=== PATIENT | female | born 1935 | race Caucasian/White ===

== ENCOUNTER 2017-05-30 21:00 | Inpatient (IN) | payer MEDICARE ==
[2017-05-30 21:00] VITALS: RESP 19; O2SAT 99
[2017-05-30 21:05] VITALS: O2SAT 100
--- NOTE | 2017-05-30 21:08 | PD ---
HPI Chief Complaint: head injury Time Seen by Provider: 21:03 Travel History International Travel<30 days: No Contact w/Intl Traveler<30days: No Traveled to known affect area: No History of Present Illness HPI 81-year-old female presents to the emergency department by EMS transport from home where she was witnessed to have a non-syncopal slip and fall backwards with head injury. According the patient just prior to arrival to the emergency department she was at her home and stepped backwards off of a small uneven surface on the floor and was unable to catch her fall with her extremities and landed backwards hitting the back of her head. Patient sustained a large laceration to the back of the head with estimated blood loss of 2 saturated trauma pads per EMS. Patient complains of posterior head pain and neck pain. Patient denies any upper extremity or lower extremity numbness tingling or weakness other she does have chronic peripheral diabetic neuropathy that affects both of her feet with tingling sensation that is at her baseline. Patient states she did not have loss of consciousness and remembers all elements of the event. Patient did have episode of vomiting en route to the hospital and received a one-time dose of Zofran. Patient's last tetanus immunization was within the last year. Patient takes Plavix and aspirin daily for history of cardiac disease with previous coronary bypass and bridge 12 years ago. Patient is seen annually by her database administration project manager Dr. Cornelius and has annual stress tests and was seen as recently as 3 months ago by her database administration project manager and her workup was fine at that time. Patient denies any preceding or post fall confusion visual disturbance change in speech chest pain palpitations sweats shortness of breath or referred neck jaw back shoulder or arm pain. Patient denies any back pain flank pain pelvis pain chest pain rib pain abdominal pain painful respiration pelvis pain or extremity injury. Patient rates her current pain 5/10 in intensity. Patient admits to alcohol consumption this evening. [facility] Past Medical History Narrative Medical CAD, CABG, diabetes, hypertension alcohol use no tobacco use nursing notes reviewed Social History Tobacco Use: No Allergies-Medications (Allergen,Severity, Reaction): Coded Allergies: Penicillins (Verified Allergy, Unknown, 05/30/17) Review of Systems Except as stated in HPI: all other systems reviewed are Neg General / Constitutional: No: Fever, Chills Eyes: No: Diploplia, Blurred Vision HENT: Positive: Headaches, Neck Pain, No: Vertigo, Lightheadedness, Neck Stiffness Cardiovascular: No: Chest Pain or Discomfort, Palpitations, Diaphoresis, Syncope Respiratory: No: Shortness of Breath Gastrointestinal: Positive: Nausea, Vomiting, No: Abdominal Pain Genitourinary: No: Pelvic Pain, Flank Pain Musculoskeletal: No: Myalgias, Arthralgias Skin: No Rash Neurologic: Positive: Headache, No: Weakness, Dizziness, Syncope, Focal Abnormalities, Coordination Problem, Change in Mentation, Slurred Speech, Paresthesia (diabetic peripheral neuropathy), Seizures, Sensory Disturbance Psychiatric: No: Anxiety Hematologic/Lymphatic: Positive: Easy Bruising (Plavix aspirin use) Physical Exam Narrative GENERAL: Well-developed well-nourished female in no acute distress no respiratory distress; GCS 15; bandage to scalp and had with cervical collar in place transported without backboard. SKIN: Warm and dry. HEAD: Atraumatic. Normocephalic. Scalp hematoma, posterior EYES: Pupils equal and round. Extraocular muscles intact. No scleral icterus. No injection or drainage. ENT: No nasal bleeding or discharge. Mucous membranes pink and moist. NECK: Trachea midline. No JVD. Minimal proximal tenderness to midline palpation of the cervical spine without bony step-off. CARDIOVASCULAR: Regular rate and rhythm. Chest wall: Nontender to palpation no crepitus. RESPIRATORY: No accessory muscle use. Clear to auscultation. Breath sounds equal bilaterally. GASTROINTESTINAL: Abdomen soft, non-tender, nondistended. Hepatic and splenic margins not palpable. MUSCULOSKELETAL: Extremities without clubbing, cyanosis, or edema. No obvious deformities. Radial and dorsalis pedis pulses 2+ to palpation bilaterally with brisk capillary refill per digit NEUROLOGICAL: Awake and alert. GCS 15. No obvious cranial nerve deficits. Motor grossly within normal limits. Five out of 5 muscle strength in the arms and legs. Sensory exam grossly intact to light touch. Normal speech. PSYCHIATRIC: Appropriate mood and affect; insight and judgment normal. Data Data Last Documented VS Vital Signs Date Time Temp Pulse Resp B/P (MAP) Pulse Ox O2 Delivery O2 Flow Rate FiO2 05/30/17 21:05 100 2.00 05/30/17 21:00 Nasal Cannula 05/30/17 21:00 19 Orders Orders I-Stat Profile (05/30/17 21:03) I-Stat Creatinine (05/30/17 21:03) Complete Blood Count With Diff (05/30/17 21:03) Prothrombin Time / Inr (Pt) (05/30/17 21:03) Act Partial Throm Time (Ptt) (05/30/17 21:03) Type And Screen (05/30/17 21:03) Chest, Single Ap (05/30/17 21:03) Ct Brain W/O Iv Contrast(Rout) (05/30/17 21:03) Ct Cerv Spine W/O Contrast (05/30/17 21:03) Electrocardiogram (05/30/17 21:03) Blood Glucose (05/30/17 21:03) Iv Access Insert/Monitor (05/30/17 21:03) Ecg Monitoring (05/30/17 21:03) Oximetry (05/30/17 21:03) Oxygen Administration (05/30/17 21:03) Ondansetron Inj (Zofran Inj) (05/30/17 21:15) Potassium, Serum (K) (05/30/17 21:26) Calcium Gluconate Inj (Calcium Gluconate (05/30/17 21:30) Alcohol (Ethanol) (05/30/17 21:20) Troponin I (05/30/17 21:20) Morphine Inj (Morphine Inj) (05/30/17 21:45) Nitroglycerin 2% Oint (Nitroglycerin 2% (05/30/17 22:15) Electrocardiogram (05/30/17 ) Lidocaine Pf 1% Inj (Xylocaine-Mpf 1% In (05/30/17 22:30) Aspirin Chew (Aspirin Chew) (05/31/17 00:45) Cefazolin 2 Gm Premix (Ancef 2 Gm Premix (05/31/17 00:45) Place In Observation (05/31/17 ) Vital Signs (Adult) Q4H (05/31/17 00:52) Activity Bed Rest With Brp (05/31/17 ) Process Designer / Telemetry SARITHA.Q8H (05/31/17 00:52) Sodium Chloride 0.9% Flush (Ns Flush) (05/31/17 09:00) Sodium Chloride 0.9% Flush (Ns Flush) (05/31/17 01:00) Creatine Kinase (Cpk) (05/31/17 09:00) Troponin I (05/31/17 09:00) Electrocardiogram (05/31/17 03:00) Electrocardiogram (05/31/17 09:00) Galileo Bilateral/Knee High SARITHA.QSHIFT (05/31/17 00:52) Labs Laboratory Tests Test 05/30/17 21:05 05/30/17 21:20 White Blood Count 8.0 TH/MM3 Red Blood Count 3.91 MIL/MM3 Hemoglobin 13.8 GM/DL Bedside Hemoglobin 13.9 G/DL Hematocrit 38.4 % Bedside Hematocrit 41.0 % Mean Corpuscular Volume 98.2 FL Mean Corpuscular Hemoglobin 35.2 PG Mean Corpuscular Hemoglobin Concent 35.8 % Red Cell Distribution Width 13.4 % Platelet Count 291 TH/MM3 Mean Platelet Volume 8.0 FL Neutrophils (%) (Auto) 66.6 % Lymphocytes (%) (Auto) 25.6 % Monocytes (%) (Auto) 5.2 % Eosinophils (%) (Auto) 1.9 % Basophils (%) (Auto) 0.7 % Neutrophils # (Auto) 5.3 TH/MM3 Lymphocytes # (Auto) 2.0 TH/MM3 Monocytes # (Auto) 0.4 TH/MM3 Eosinophils # (Auto) 0.2 TH/MM3 Basophils # (Auto) 0.1 TH/MM3 CBC Comment DIFF FINAL Differential Comment Prothrombin Time 11.3 SEC Prothromb Time International Ratio 1.0 RATIO Activated Partial Thromboplast Time 24.3 SEC Bedside Sodium 131 MMOL/L Bedside Potassium 6.5 MMOL/L Bedside Chloride 98 MMOL/L Bedside Blood Urea Nitrogen 16 MG/DL Bedside Creatinine 0.6 MG/DL Bedside Glucose 186 MG/DL Potassium Level 4.0 MEQ/L Troponin I 0.17 NG/ML Ethyl Alcohol Level LESS THAN 3 MG/DL [facility] Medical Decision Making Medical Screen Exam Complete: Yes Emergency Medical Condition: Yes Medical Record Reviewed: Yes Interpretation(s) EKG: Sinus rhythm first degree AV block with interventricular conduction delay with age-indeterminate QS inferiorly and anterolaterally Differential Diagnosis Closed head injury, concussion, skull fracture, ICH, scalp laceration, arrhythmia, cervical spine sprain strain contusion Narrative Course Patient placed on surveillance monitor with continuous pulse oximetry EKG performed which shows QRS inferiorly and Q waves anterolaterally age-indeterminate RSR prime right bundle branch block noted V2 indeterminate ST elevation patient has no chest pain or shortness of breath complains of head pain and has had nausea secondary to head injury. I-STAT resulted as potassium of 6.5 concerning for conduction disturbance stat serum potassium ordered with plan to administer calcium gluconate for hyperkalemia persistent. Repeat serum potassium 4.0 Patient returns from CAT scan complains of headache and neck pain associated with cervical collar application imaging study results pending patient given one -time dose of morphine 2 mg for headache pain again denies any nausea at this time denies any chest pain or shortness of breath. At 9:[address] brain noncontrast and CT cervical spine non-contrast studies have been resulted by radiologist CT brain noncontrast reveals no acute inter cranial process no skull fracture scalp hematoma is noted; CT cervical spine reveals no acute bony abnormality or fracture, mild degenerative disc disease is noted. This information is shared with the patient and cervical collar has been removed by me after reassessment of spine on exam. Troponin I is elevated at 0.17; patient denies any chest pain; in view of cardiac history and prior age-indeterminate QS changes inferiorly and anterolaterally nitroglycerin paste 1 inch was applied to the chest wall. Call was placed to patient's database administration project manager Dr. Locke and patient's case discussed with Dr. Vera including review of her EKGs and reports that EKG changes look consistent with old OK and no acute event does not think the EKG changes are consistent with STEMI. Patient will be admitted to medicine service to [facility] for closed head injury status post fall, scalp laceration with hematoma, elevated troponin I with CAD on anticoagulation, and cervical strain. Procedures Procedure Narrative LACERATION LOCATION: Posterior right scalp LENGTH: 2.5 stellate NUMBER OF STITCHES/KD: 7 REPAIR: The area of the laceration was prepped with Betadine and sterilely draped. The laceration was infiltrated with 1% lidocaine plain. The wound was copiously irrigated and explored with evacuation of large clot without evidence of foreign body, tendon injury or neurovascular injury. The wound was closed using 5-0 nylon. This was a single layer repair. A sterile dressing was applied. The patient was advised to keep the dressing clean and dry. Patient tolerated the procedure well. Tetanus status current. Physician Communication Physician Communication Call placed to Dr. Grace--discussed with Dr Vera --reviewed EKG's; discussed with Dr Houston --admit Diagnosis Primary Impression: Closed head injury Qualified Codes: S09.90XA - Unspecified injury of head, initial encounter Additional Impressions: Elevated troponin I level Traumatic hematoma of scalp Qualified Codes: S00.03XA - Contusion of scalp, initial encounter CAD (coronary artery disease) Cervical strain Qualified Codes: S16.1XXA - Strain of muscle, fascia and tendon at neck level , initial encounter Admitting Information Admitting Physician Requests: Admit Evonne Knott MD May 30, 2017 21:08
[2017-05-30] MEDS ORDERED: ONDANSETRON HCL 4 MG/2 ML VIAL ONE (21:15)
[2017-05-30 21:25] LABS: I-STAT POTASSIUM 6.5 MMOL/L (3.5-4.9)
[2017-05-30 21:26] LABS: AUTOMATED NEUTROPHIL # 5.3 TH/MM3 (1.8-7.7); BASOPHIL # 0.1 TH/MM3 (0-0.2); BASOPHIL % 0.7 % (0.0-2.0); EOSINOPHIL # 0.2 TH/MM3 (0-0.4); EOSINOPHIL % 1.9 % (0.0-4.0); HEMATOCRIT 38.4 % (35.0-46.0); HEMO FLAGS DIFF FINAL; LYMPH % 25.6 % (9.0-44.0); MEAN CELL VOLUME 98.2 FL (80.0-100.0); MEAN CORPUSCULAR HEMOGLOBIN 35.2 PG (27.0-34.0); MEAN CORPUSCULAR HGB CONC 35.8 % (32.0-36.0); MONO % 5.2 % (0.0-8.0); NEUT % 66.6 % (16.0-70.0); PLATELET COUNT 291 TH/MM3 (150-450); RED BLOOD COUNT 3.91 MIL/MM3 (4.00-5.30); RED CELL DISTRIBUTION WIDTH 13.4 % (11.6-17.2)
[2017-05-30] MEDS ORDERED: CALCIUM GLUCONATE INJ 1 GM in DEXTROSE 5% IN WATER 100ML INJ 100 ML IV ONE ×2 (21:30)
--- NOTE | 2017-05-30 21:32 | RADRPT ---
EXAM DATE/TIME: 05/30/2017 21:13 [facility] COMPARISON: No previous studies available for comparison. INDICATIONS : Trauma/ Fall MEDICAL HISTORY : Cardiovascular disease. SURGICAL HISTORY : CABG. ENCOUNTER: Initial ACUITY: 1 day PAIN SCORE: 0/10 LOCATION: Bilateral chest FINDINGS: A single view of the chest demonstrates the lungs to be symmetrically aerated without evidence of mas s, infiltrate or effusion. The cardiomediastinal contours are unremarkable. Previous CABG. Osseous s tructures are intact. CONCLUSION: 1. No active disease. Previous CABG. Riky Bird MD on May 30, 2017 at 21:30 Board Certified Radiologist. This report was verified electronically.
[2017-05-30 21:45] LABS: APTT (PATIENT) 24.3 SEC (24.3-30.1); PROTHROMBIN TIME - PATIENT 11.3 SEC (9.8-11.6)
[2017-05-30] MEDS ORDERED: MORPHINE SULFATE 2 MG/ML INJ IV PUSH ONE (21:45)
--- NOTE | 2017-05-30 21:49 | RADRPT ---
EXAM DATE/TIME: 05/30/2017 21:23 [facility] COMPARISON: No previous studies available for comparison. INDICATIONS : Trauma alert; fall. RADIATION DOSE: 56.35 CTDIvol (mGy) MEDICAL HISTORY : Hypertension. Diabetes mellitus type 2. SURGICAL HISTORY : None. ENCOUNTER: Initial ACUITY: 1 day PAIN SCALE: 5/10 LOCATION: cranial TECHNIQUE: Multiple contiguous axial images were obtained of the head. Using automated exposure control and adj ustment of the mA and/or kV according to patient size, radiation dose was kept as low as reasonably a chievable to obtain optimal diagnostic quality images. DICOM format image data is available electro nically for review and comparison. FINDINGS: CEREBRUM: The ventricles are normal for age. No evidence of midline shift, mass lesion, hemorrhage or acute in farction. No extra-axial fluid collections are seen. POSTERIOR FOSSA: The cerebellum and brainstem are intact. The 4th ventricle is midline. The cerebellopontine angle i s unremarkable. EXTRACRANIAL: The visualized portion of the orbits is intact. Right parietal scalp hematoma. SKULL: The calvaria is intact. No evidence of skull fracture. CONCLUSION: 1. No acute intracranial abnormalities. Right parietal scalp hematoma. Riky Bird MD on May 30, 2017 at 21:45 Board Certified Radiologist. This report was verified electronically.
--- NOTE | 2017-05-30 21:50 | RADRPT ---
EXAM DATE/TIME: 05/30/2017 21:25 [facility] COMPARISON: No previous studies available for comparison. INDICATIONS : Trauma alert; fall. RADIATION DOSE: 36.37 CTDIvol (mGy) MEDICAL HISTORY : Hypertension. Diabetes mellitus type 2. SURGICAL HISTORY : None. ENCOUNTER: Initial ACUITY: 1 day PAIN SCALE: 5/10 LOCATION: Bilateral neck TECHNIQUE: Volumetric scanning of the cervical spine was performed. Multiplanar reconstructions in the sagittal, coronal and oblique axial planes were performed. Using automated exposure control and adjustment o f the mA and/or kV according to patient size, radiation dose was kept as low as reasonably achievable to obtain optimal diagnostic quality images. DICOM format image data is available electronically f or review and comparison. FINDINGS: VERTEBRAE: Normal vertebral body height. ALIGNMENT: No evidence of subluxation. C2-C3: The bony spinal canal is normal in size. No evidence of disc bulge or herniation. The neural forami na are bilaterally patent. C3-C4: The bony spinal canal is normal in size. No evidence of disc bulge or herniation. The neural forami na are bilaterally patent. C4-C5: The bony spinal canal is normal in size. No evidence of disc bulge or herniation. The neural forami na are bilaterally patent. C5-C6: The bony spinal canal is normal in size. No evidence of disc bulge or herniation. The neural forami na are bilaterally patent. C6-C7: The bony spinal canal is normal in size. No evidence of disc bulge or herniation. The neural forami na are bilaterally patent. C7-T1: The bony spinal canal is normal in size. No evidence of disc bulge or herniation. The neural forami na are bilaterally patent. CONCLUSION: 1. Mild degenerative disc disease and facet arthropathy. No acute bony abnormality. Riky Bird MD on May 30, 2017 at 21:47 Board Certified Radiologist. This report was verified electronically.
[2017-05-30 21:51] LABS: ALCOHOL LESS THAN 3 MG/DL (0-5)
[2017-05-30] MEDS ORDERED: NITROGLYCERIN 2% OINT 1 GM PACKET TOPICAL ONE (22:15)
[2017-05-30] MEDS ORDERED: LIDOCAINE HCL 1% PF 30 ML VIAL INFIL ONE (22:30)
[2017-05-31] VITALS (22 sets, daily range): BP systolic 123–154; BP diastolic 68–90; PULSE 65–90; RESP 15–20; TEMP 98.1–98.8; O2SAT 96–99
[2017-05-31] MEDS ORDERED: ceFAZolin 2 GM PREMIX 50 ML IV ONE (00:45)
[2017-05-31] MEDS ORDERED: ASPIRIN 81 MG CHEW TAB CHEW ONE (00:45)
[2017-05-31] MEDS ORDERED: SODIUM CHLORIDE 0.9% FLUSH 10 ML FLUSH IV FLUSH PRN (01:00)
[2017-05-31] MEDS ORDERED: METOCLOPRAMIDE HCL 10 MG/2 ML VIAL IV PUSH ONE (02:15)
[2017-05-31] MEDS ORDERED: MORPHINE SULFATE 2 MG/ML INJ IV PUSH ONE (02:15)
[2017-05-31] MEDS ORDERED: GLUCAGON 1 MG/ML VIAL OTHER PRN (02:30)
[2017-05-31] MEDS ORDERED: DEXTROSE 50% IN WATER 50 ML VIAL(D50) IV PUSH PRN (02:30)
--- NOTE | 2017-05-31 02:33 | HHI.HP ---
[facility] Service [facility] Primary Care Physician Unknown Admission Diagnosis closed head injury; elevated troponin I w/ CAD; cervical strain Diagnoses: Travel History International Travel<30 Days: No Contact w/Intl Traveler <30 Da: No Traveled to Known Affected Are: No History of Present Illness 81-year-old female with a past medical history significant for coronary artery disease status post CABG, duodenal ulcer, diabetes mellitus, anxiety and neuropathy presents to the emergency department status post a fall. The patient was at her home when she stepped backwards off an uneven surface and fell backwards hitting the back of her head. The patient sustained a large laceration to the back of her head. She denies loss of consciousness. Since her fall, she has had several episodes of nausea/vomiting. She is anticoagulated on aspirin and Plavix. CT of the head was significant for right parietal scalp hematoma without intracranial abnormalities. CT of the cervical spine is within normal limits. The patient denies any chest pain or shortness of breath. She continues to have nausea and states she "just doesn't feel well. " Laboratory values significant for troponin of 0.17. EKG showed sinus rhythm and right bundle branch block without ST segment elevations or depressions. Review of Systems Denies fever or chills Denies blurry vision, otorrhea, rhinorrhea Denies sore throat and cough No chest pain, palpitations, shortness of breath Positive abdominal pain Positive nausea/vomiting. Chronic diarrhea. Denies muscle pain/weakness No rashes Past Family Social History Past Medical History Neuropathy Anxiety Type 2 diabetes mellitus Coronary artery disease status post CABG Duodenal ulcer Past Surgical History CABG 3 Hysterectomy Allergies: Coded Allergies: Penicillins (Verified Allergy, Unknown, 05/30/17) Family History Mother with diabetes mellitus Social History Smokes a half pack to a pack per day for 40 years. Denies alcohol, illicit drugs Physical Exam Vital Signs Vital Signs Date Time Temp Pulse Resp B/P (MAP) Pulse Ox O2 Delivery O2 Flow Rate FiO2 05/31/17 01:00 65 15 154/68 (96) 96 Room Air 05/30/17 21:05 100 2.00 05/30/17 21:00 99 Nasal Cannula 2.00 05/30/17 21:00 19 99 Nasal Cannula 2.00 Physical Exam GENERAL: Elderly female lying in bed SKIN: No rashes HEAD: Normocephalic. Dressing wrapped around the patient's head covering parietal laceration. No shadowing. EYES: Pupils equal round and reactive. Extraocular motions intact. No scleral icterus. No injection or drainage. ENT: Nose without bleeding, purulent drainage or septal hematoma. Throat without erythema, tonsillar hypertrophy or exudate. Uvula midline. Airway patent. NECK: Trachea midline. No JVD or lymphadenopathy. Supple, nontender, no meningeal signs. CARDIOVASCULAR: Regular rate and rhythm without murmurs, gallops, or rubs. RESPIRATORY: Clear to auscultation. Breath sounds equal bilaterally. No wheezes , rales, or rhonchi. GASTROINTESTINAL: Abdomen soft, diffusely ttp, nondistended. No hepato- splenomegaly, or palpable masses. No guarding. MUSCULOSKELETAL: Extremities without clubbing, cyanosis, or edema. No joint tenderness, effusion, or edema noted. No calf tenderness. Negative Homans sign bilaterally. NEUROLOGICAL: Awake and alert. Cranial nerves II through XII intact. Motor and sensory grossly within normal limits. Normal speech. Laboratory Laboratory Tests Test 05/30/17 21:05 05/30/17 21:20 White Blood Count 8.0 Red Blood Count 3.91 Hemoglobin 13.8 Bedside Hemoglobin 13.9 Hematocrit 38.4 Bedside Hematocrit 41.0 Mean Corpuscular Volume 98.2 Mean Corpuscular Hemoglobin 35.2 Mean Corpuscular Hemoglobin Concent 35.8 Red Cell Distribution Width 13.4 Platelet Count 291 Mean Platelet Volume 8.0 Neutrophils (%) (Auto) 66.6 Lymphocytes (%) (Auto) 25.6 Monocytes (%) (Auto) 5.2 Eosinophils (%) (Auto) 1.9 Basophils (%) (Auto) 0.7 Neutrophils # (Auto) 5.3 Lymphocytes # (Auto) 2.0 Monocytes # (Auto) 0.4 Eosinophils # (Auto) 0.2 Basophils # (Auto) 0.1 CBC Comment DIFF FINAL Differential Comment Prothrombin Time 11.3 Prothromb Time International Ratio 1.0 Activated Partial Thromboplast Time 24.3 Bedside Sodium 131 Bedside Potassium 6.5 Bedside Chloride 98 Bedside Blood Urea Nitrogen 16 Bedside Creatinine 0.6 Bedside Glucose 186 Potassium Level 4.0 Troponin I 0.17 Ethyl Alcohol Level LESS THAN 3 Result Diagram: 05/30/17210405/30/172119 Caprini VTE Risk Assessment Caprini VTE Risk Assessment: Mod/High Risk (score >= 2) Caprini Risk Assessment Model Point Value = 1 Point Value = 2 Point Value = 3 Point Value = 5 Age 41-60 Minor surgery BMI > 25 kg/m2 Swollen legs Varicose veins or History of unexplained or recurrent spontaneous Oral contraceptives or hormone replacement Sepsis (< 1 month) Serious lung disease, including pneumonia (< 1 month) Abnormal pulmonary function Acute myocardial infarction Congestive heart failure (< 1 month) History of inflammatory bowel disease Medical patient at bed rest Age 61-74 Arthroscopic surgery Major open surgery (> 45 min) Laparoscopic surgery (> 45 min) Malignancy Confined to bed (> 72 hours) Immobilizing plaster cast Central venous access Age >= 75 History of VTE Family history of VTE Factor V Leiden Prothrombin [id number] Lupus anticoagulant Anticardiolipin antibodies Elevated serum homocysteine Heparin-induced thrombocytopenia Other congenital or acquired thrombophilia Stroke (< 1 month) Elective arthroplasty Hip, pelvis, or leg fracture Acute spinal cord injury (< 1 month) Prophylaxis Regimen Total Risk Factor Score Risk Level Prophylaxis Regimen 0-1 Low Early ambulation 2 Moderate Order ONE of the following: *Sequential Compression Device (SCD) *Heparin 5000 units SQ BID 3-4 Higher Order ONE of the following medications: *Heparin 5000 units SQ TID *Enoxaparin/Lovenox 40 mg SQ daily (WT < 150 kg, CrCl > 30 mL/min) *Enoxaparin/Lovenox 30 mg SQ daily (WT < 150 kg, CrCl > 10-29 mL/min) *Enoxaparin/Lovenox 30 mg SQ BID (WT < 150 kg, CrCl > 30 mL/min) AND/OR *Sequential Compression Device (SCD) 5 or more Highest Order ONE of the following medications: *Heparin 5000 units SQ TID (Preferred with Epidurals) *Enoxaparin/Lovenox 40 mg SQ daily (WT < 150 kg, CrCl > 30 mL/min) *Enoxaparin/Lovenox 30 mg SQ daily (WT < 150 kg, CrCl > 10-29 mL/min) *Enoxaparin/Lovenox 30 mg SQ BID (WT < 150 kg, CrCl > 30 mL/min) AND *Sequential Compression Device (SCD) Assessment and Plan Assessment and Plan 81-year-old female who sustained a head injury status post fall found to have elevated troponin. 1. Elevated troponin EKG with right bundle branch block and no ST elevation or depression, reviewed by me Troponin 0.17 ACS rule out pending; serial troponins/EKGs Cardiology consulted, appreciate recommendations Spoke with Dr. Knott at length who discussed the case with Dr. Vera, he recommends monitoring without anticoagulation at this time 2. Closed head injury CT head negative for intracranial cranial bleed Patient continues to have nausea/vomiting Monitor closely with neuro checks Low threshold to repeat head CT 3. DM SSI 4. CAD/anxiety/neuropathy Continue home medications once entered FEN NPO NS at 50 cc/hr Electrolytes: Monitor and replete prn Holding pharmacologic anticoagulation secondary to head trauma Physician Certification 2 Midnight Certification Type: Admission for Inpatient Services Order for Inpatient Services The services are ordered in accordance with Medicare regulations or non- Medicare payer requirements, as applicable. In the case of services not specified as inpatient-only, they are appropriately provided as inpatient services in accordance with the 2-midnight benchmark. Estimated LOS (days): 2 2 days is the estimated time the patient will need to remain in the hospital, assuming treatment plan goals are met and no additional complications. Post-Hospital Plan: Not yet determined Elena Houston MD May 31, 2017 02:33
[2017-05-31 02:55] LABS: AUTOMATED NEUTROPHIL # 9.7 TH/MM3 (1.8-7.7); BASOPHIL % 0.1 % (0.0-2.0); HEMATOCRIT 40.1 % (35.0-46.0); HEMO FLAGS DIFF FINAL; LYMPH % 7.7 % (9.0-44.0); LYMPHOCYTE # 0.9 TH/MM3 (1.0-4.8); MEAN CELL VOLUME 99.2 FL (80.0-100.0); MEAN CORPUSCULAR HEMOGLOBIN 33.5 PG (27.0-34.0); MEAN CORPUSCULAR HGB CONC 33.8 % (32.0-36.0); MONO % 4.2 % (0.0-8.0); PLATELET COUNT 231 TH/MM3 (150-450); RED BLOOD COUNT 4.04 MIL/MM3 (4.00-5.30); RED CELL DISTRIBUTION WIDTH 12.9 % (11.6-17.2)
[2017-05-31] MEDS: SODIUM CHLOR 0.9% 1000 ML INJ 1,000 ML IV SCH ×2 (03:02→22:30)
[2017-05-31 03:12] LABS: ALT (GPT) 24 U/L (10-53); ANION GAP 12 MEQ/L (5-15); AST (GOT) 32 U/L (15-37); BICARBONATE 24.4 MEQ/L (21.0-32.0); BLOOD UREA NITROGEN 12 MG/DL (7-18); CHLORIDE 96 MEQ/L (98-107); GLOMERULAR FILTRATION RATE 89 ML/MIN (>89); POTASSIUM 3.2 MEQ/L (3.5-5.1); SODIUM (NA) 132 MEQ/L (136-145)
[2017-05-31 03:14] LABS: ALKALINE PHOSPHATASE 62 U/L (45-117); TOTAL BILIRUBIN ADULT 0.7 MG/DL (0.2-1.0)
[2017-05-31] MEDS: ACETAMINOPHEN 325 MG TAB PO PRN ×2 (03:54→20:44)
[2017-05-31] MEDS ORDERED: ROSU1TAB4 PO (07:38)
[2017-05-31] MEDS ORDERED: RAMI5CAP PO (07:38)
[2017-05-31] MEDS ORDERED: GABA300C5 PO (07:38)
[2017-05-31] MEDS ORDERED: METF-758 PO (07:38)
[2017-05-31] MEDS ORDERED: METO1TAB42 PO (07:38)
[2017-05-31] MEDS ORDERED: CHOL10008 PO (07:38)
[2017-05-31] MEDS ORDERED: LORA1TAB12 PO (07:38)
[2017-05-31] MEDS ORDERED: TH CTAB3 PO (07:38)
[2017-05-31] MEDS ORDERED: CLOP75TA PO (07:38)
[2017-05-31] MEDS ORDERED: CEPH250C PO (07:38)
[2017-05-31] MEDS: INSULIN ASPART SUPPLEMENTAL SCALE SQ SCH ×5 (08:00→21:04)
[2017-05-31] MEDS: SODIUM CHLORIDE 0.9% FLUSH 10 ML FLUSH IV FLUSH SCH ×2 (09:00→20:46)
[2017-05-31] MEDS: RAMIPRIL 5 MG CAP PO SCH (10:00)
[2017-05-31] MEDS: METOPROLOL SUCCINATE 25 MG EXTENDED RELEASE TAB PO SCH (10:00)
--- NOTE | 2017-05-31 11:25 | MB ---
cc: FEDERICO ORTEGA M.D. DATE OF CONSULTATION 05/31/2017 REASON FOR CONSULTATION Fall and slightly positive troponin. HISTORY OF PRESENT ILLNESS This is an 81-year-old female with a past medical history of coronary artery disease status post four-vessel bypass surgery a long time ago. Also has a history of type 2 diabetes mellitus, hypertension, hyperlipidemia, with and tobacco abuse. The patient presented to [facility] after she tripped and fell. She denies loss of consciousness. She also denies unprovoked or exertional chest pain or shortness of breath. She has no symptoms of lightheadedness, dizziness, lower extremity edema or recent weight gain. The initial workup included a 12-lead EKG which was normal. The troponin came back slightly positive by 0.17, however, as mentioned above, the patient remains chest pain-free. ALLERGIES PENICILLIN SOCIAL HISTORY The patient continued to smoke for a long time and continues to do so. She denies alcohol abuse. FAMILY HISTORY Noncontributory REVIEW OF SYSTEMS HEENT: No complaints of lightheadedness or dizziness. CARDIOVASCULAR: History of coronary artery disease status post CABG. PULMONARY: No history of asthma or COPD. GI: No history of GERD or GI bleed. : No history of renal failure. The remainder of her review of systems is within normal limits. PHYSICAL EXAM VITAL SIGNS: Showed a blood pressure of 125/70 with a heart rate of 70 and respiratory rate of 12. The patient is afebrile. NECK: Supple with no jugular venous distension. CHEST: Clear to auscultation and percussion. HEART: S1 normal intensity, S2 single, regular rate and rhythm. No S3 appreciated. ABDOMEN: Benign. EXTREMITIES: No edema, clubbing or cyanosis. IMPRESSION 1. Slightly elevated troponin with normal EKG' and no complaints of chest pain. This is of uncertain significance, however clinically, the patient did not have acute coronary syndrome. 2. Fall and closed head injury. CT scan of the head was within normal limits. Currently the patient is stable. 3. Type 2 diabetes 4. Coronary artery disease status post CABG. 5. Closed head injury status post fall. CT scan of the head is negative. 6. Type 2 diabetes mellitus 7. Hypertension 8. Hyperlipidemia 9. Tobacco abuse RECOMMENDATIONS There is no impression of acute coronary syndrome. The patient is stable from a cardiovascular standpoint to be discharged home. I will follow up through in my office soon. Thank you for this consultation. Federico Ortega MD /ASIA /11:08 AM /11:15 AM
[2017-05-31] MEDS: GABAPENTIN 300 MG CAP PO SCH (12:15)
[2017-05-31] MEDS: CLOPIDOGREL 75 MG TAB PO SCH (12:15)
[2017-05-31] MEDS: CEPHALEXIN MONOHYDRATE 250 MG CAP PO SCH ×2 (13:00→16:36)
--- NOTE | 2017-05-31 13:09 | EKG ---
Date Performed: 05/30/2017 Time Performed: 21:05:26 PTAGE: 81 years EKG: Sinus rhythm WITH FIRST DEGREE AV BLOCK RIGHT BUNDLE BRANCH BLOCK VOLTAGE CRITERIA FOR LVH ANTEROLATERAL MYOCARDI AL INFARCTION CLINICAL CORRELATION IS RECOMMENDED ABNORMAL ECG NO PREVIOUS TRACING DOCTOR: Alan Angulo Interpretating Date/Time 05/31/2017 13:08:21
--- NOTE | 2017-05-31 15:04 | EKG ---
Date Performed: 05/30/2017 Time Performed: 23:03:35 PTAGE: 81 years EKG: SINUS BRADYCARDIA WITH FIRST DEGREE AV BLOCK RIGHT BUNDLE BRANCH BLOCK LEFT ANTERIOR FASCIC ULAR BLOCK VOLTAGE CRITERIA FOR LVH ANTEROLATERAL MYOCARDIAL INFARCTION Since previous tracing, no si gnificant change noted ABNORMAL ECG PREVIOUS TRACING : 05/30/2017 21.05.26 DOCTOR: Alan Angulo Interpretating Date/Time 05/31/2017 15:03:42
[2017-05-31] MEDS: HEPARIN SODIUM - SQ 10,000 UNITS/ML VIAL SQ SCH ×2 (16:31→20:44)
[2017-05-31] MEDS ORDERED: ONDANSETRON HCL 4 MG/2 ML VIAL IV PUSH PRN (16:45)
[2017-05-31] MEDS: PANTOPRAZOLE SOD 40 MG DELAYED RELEASE TAB PO SCH (16:58)
--- NOTE | 2017-05-31 18:38 | HHI.PR ---
Addendum to Inpatient Note Addendum Reason: Additional Documentation Additional Information Elevated troponin significant now, d/w Dr. Wharton, will keep inpt, start heparin, continue plavix, plan for cath on Sat. pt receptive to plan. Pt denies any SOB and nor angina. Obie Curiel MD May 31, 2017 18:38
[2017-05-31] MEDS ORDERED: NITROGLYCERIN 0.4 MG SL 25 TABS/BTL SL PRN (19:15)
[2017-05-31] MEDS: LORazepam 1 MG TAB PO PRN (20:44)
[2017-05-31] MEDS ORDERED: ATORVASTATIN 10 MG TAB PO SCH (21:00)
[2017-06-01] VITALS (23 sets, daily range): BP systolic 126–148; BP diastolic 67–99; PULSE 72–87; RESP 18; TEMP 98–98.3; O2SAT 96–97
[2017-06-01] MEDS: HEPARIN SODIUM - SQ 10,000 UNITS/ML VIAL SQ SCH ×3 (05:21→19:28)
[2017-06-01] MEDS: INSULIN ASPART SUPPLEMENTAL SCALE SQ SCH ×4 (08:00→19:35)
[2017-06-01] MEDS: METOPROLOL SUCCINATE 25 MG EXTENDED RELEASE TAB PO SCH (09:17)
[2017-06-01] MEDS: GABAPENTIN 300 MG CAP PO SCH (09:17)
[2017-06-01] MEDS: CLOPIDOGREL 75 MG TAB PO SCH (09:17)
[2017-06-01] MEDS: RAMIPRIL 5 MG CAP PO SCH (09:18)
[2017-06-01] MEDS: SODIUM CHLORIDE 0.9% FLUSH 10 ML FLUSH IV FLUSH SCH ×2 (09:18→19:34)
[2017-06-01] MEDS: PANTOPRAZOLE SOD 40 MG DELAYED RELEASE TAB PO SCH (09:18)
--- NOTE | 2017-06-01 09:43 | HHI.PR ---
Subjective Remarks Patient denies any chest pain. She does report having some intermittent nausea yesterday which she thinks is mainly postprandial, had some dry heaving yesterday. She does not think her nausea is tied to her scalp pain. Objective Vital Signs Date Time Temp Pulse Resp B/P (MAP) Pulse Ox O2 Delivery O2 Flow Rate FiO2 06/01/17 09:00 84 06/01/17 08:00 94 Room Air 06/01/17 08:00 78 06/01/17 08:00 98.0 78 18 132/99 (110) 96 06/01/17 07:00 74 06/01/17 06:00 Room Air 06/01/17 06:00 72 06/01/17 05:00 79 06/01/17 04:00 85 06/01/17 04:00 98.2 85 18 139/81 (100) 96 06/01/17 03:00 87 06/01/17 02:00 84 06/01/17 01:00 81 06/01/17 00:00 80 06/01/17 00:00 98.1 80 18 134/79 (97) 97 05/31/17 23:00 82 05/31/17 22:00 78 05/31/17 21:00 82 05/31/17 20:00 98.4 80 20 150/85 (106) 98 05/31/17 20:00 80 05/31/17 18:00 90 05/31/17 17:00 80 05/31/17 16:30 90 20 148/90 (109) 97 05/31/17 16:00 78 05/31/17 15:00 80 05/31/17 14:00 82 05/31/17 13:00 76 05/31/17 12:00 82 05/31/17 11:52 81 05/31/17 11:00 98.1 77 20 123/80 (94) 97 I/O 05/31/17 05/31/17 05/31/17 06/01/17 06/01/17 06/01/17 07:00 15:00 23:00 07:00 15:00 23:00 Intake Total 344 ml 250 ml 720 ml 240 ml Output Total 600 ml 500 ml Balance 344 ml 250 ml 120 ml -260 ml Intake Oral 50 ml 720 ml 240 ml IV Total 294 ml 250 ml Output Urine Total 600 ml 500 ml # Voids 1 3 # Bowel Movements 0 Result Diagram: 05/31/1722805/31/17228 Objective Remarks Unlabored breathing, no cyanosis, clear lungs bilaterally Heart sounds are regular rate and rhythm, no murmurs A/P Assessment and Plan 81-year-old female who sustained a head injury status post fall found to have elevated troponin. 1. Suspected NSTEMI - troponins drastically increased yesterday with the most recent one leveling off EKG with right bundle branch block and no ST elevation or depression, reviewed by me Cardiology aware, planning for catheterization on Saturday Will increase lipitor from 10 to 40 mg qhs, continue Toprol XL 2. Closed head injury CT head negative for intracranial cranial bleed Scalp hematoma, stitches in place, to be removed in 7-10 days, despite ideally w /o blood thinner, her heart condition trumps this warranting thinners for the time being 3. Nausea (new problem) unlikely atypical angina given there seems to be a postprandial component Protonix with IV Zofran prn If persists, may add on Reglan premeals and consider gastric emptying study. F/ u on A1c 3. DM SSI - modify diet to be compliant with carb restriction - sugars doing well less than 200 here. Order A1c 4. CAD/anxiety/neuropathy Continue home medications - continue toprol xl, gabapentin Heparin Obie Curiel MD Jun 01, 2017 09:43
--- NOTE | 2017-06-01 12:43 | HHI.PR ---
Subjective Remarks pt denies chest pain. Objective Vital Signs Date Time Temp Pulse Resp B/P (MAP) Pulse Ox O2 Delivery O2 Flow Rate FiO2 06/01/17 12:00 74 06/01/17 11:00 76 06/01/17 10:00 76 06/01/17 09:00 84 06/01/17 08:00 94 Room Air 06/01/17 08:00 78 06/01/17 08:00 98.0 78 18 132/99 (110) 96 06/01/17 07:00 74 06/01/17 06:00 Room Air 06/01/17 06:00 72 06/01/17 05:00 79 06/01/17 04:00 85 06/01/17 04:00 98.2 85 18 139/81 (100) 96 06/01/17 03:00 87 06/01/17 02:00 84 06/01/17 01:00 81 06/01/17 00:00 80 06/01/17 00:00 98.1 80 18 134/79 (97) 97 05/31/17 23:00 82 05/31/17 22:00 78 05/31/17 21:00 82 05/31/17 20:00 98.4 80 20 150/85 (106) 98 05/31/17 20:00 80 05/31/17 18:00 90 05/31/17 17:00 80 05/31/17 16:30 90 20 148/90 (109) 97 05/31/17 16:00 78 05/31/17 15:00 80 05/31/17 14:00 82 05/31/17 13:00 76 I/O 05/31/17 05/31/17 05/31/17 06/01/17 06/01/17 06/01/17 07:00 15:00 23:00 07:00 15:00 23:00 Intake Total 344 ml 250 ml 720 ml 240 ml Output Total 600 ml 500 ml Balance 344 ml 250 ml 120 ml -260 ml Intake Oral 50 ml 720 ml 240 ml IV Total 294 ml 250 ml Output Urine Total 600 ml 500 ml # Voids 1 3 # Bowel Movements 0 PE chest: CTA Heat: S1,S2, RRR Abd: ST. NT Ext: No edema Result Diagram: 05/31/1722805/31/17228 Assessment and Plan Assessment and Plan D/W pt and her daughter risks and benefits of LT HC. Risks are but not limited to:' , [place], CVA, Dye allergy, renal failure, bleed, add shock" pt understands and agrees to proceed on Saturday. Federico Grace MD Jun 01, 2017 12:43
[2017-06-01 12:48] LABS: HEMOGLOBIN A1a 0.7 %; HEMOGLOBIN Ao 82.8 %; HEMOGLOBIN LA1C 2.5 %; HEMOGLOBIN P3 4.1 %
[2017-06-01 18:15] LABS: BLOOD, URINE SMALL (NEG); COMMENT (UR) CATH-CULT NOT IND; CULTURE IF INDICATED CATH CULTURE NOT IND; GLUCOSE,URINE 300 mg/dL (NEG); KETONE, URINE TRACE mg/dL (NEG); MUCUS URINE FEW /lpf (OCC); NITRITE,URINE NEG (NEG); PH, URINE 5.5 (5.0-8.5); SQUAMOUS EPITHELIAL CELL URINE 3 /hpf (0-5); URINE COLOR YELLOW (YELLW/STRAW)
[2017-06-01] MEDS: SODIUM CHLOR 0.9% 1000 ML INJ 1,000 ML IV SCH (18:30)
[2017-06-01] MEDS: LORazepam 1 MG TAB PO PRN (19:27)
[2017-06-01] MEDS: ACETAMINOPHEN 325 MG TAB PO PRN (19:27)
[2017-06-01] MEDS: ATORVASTATIN 40 MG TAB PO SCH (19:28)
[2017-06-02] VITALS (26 sets, daily range): BP systolic 103–151; BP diastolic 58–77; PULSE 73–99; RESP 18–20; TEMP 98–98.4; O2SAT 96–100
[2017-06-02] MEDS: LORazepam 1 MG TAB PO PRN ×2 (04:13→19:48)
[2017-06-02] MEDS: ACETAMINOPHEN 325 MG TAB PO PRN ×2 (04:14→19:48)
[2017-06-02] MEDS: HEPARIN SODIUM - SQ 10,000 UNITS/ML VIAL SQ SCH ×2 (05:13→14:00)
--- NOTE | 2017-06-02 09:14 | HHI.PR ---
Subjective Remarks Nursing reports the patient did complain of some foot pain which the patient thinks happened when she struck her foot as she had fallen just prior to hospitalization. Otherwise the patient is not requesting any additional pain meds for this, she denies any chest pain. She says that her nausea had completely resolved yesterday and tolerated her meals fine. Objective Vital Signs Date Time Temp Pulse Resp B/P (MAP) Pulse Ox O2 Delivery O2 Flow Rate FiO2 06/02/17 07:30 98.1 97 18 139/71 (93) 98 06/02/17 06:00 87 06/02/17 05:00 90 06/02/17 04:00 Room Air 06/02/17 04:00 93 06/02/17 04:00 98.0 93 18 146/71 (96) 97 06/02/17 03:00 99 06/02/17 02:00 81 06/02/17 01:00 80 06/02/17 00:00 98.4 73 18 151/71 (97) 99 06/02/17 00:00 Room Air 06/02/17 00:00 73 06/01/17 23:00 77 06/01/17 22:00 72 06/01/17 21:00 74 06/01/17 20:00 Room Air 06/01/17 20:00 98.1 80 18 148/72 (97) 97 06/01/17 20:00 80 06/01/17 18:00 74 06/01/17 17:00 76 06/01/17 16:00 74 06/01/17 16:00 98.2 76 18 126/67 (86) 96 06/01/17 15:00 79 06/01/17 14:00 74 06/01/17 13:00 72 06/01/17 12:00 74 06/01/17 12:00 98.3 78 18 128/88 (101) 96 06/01/17 11:00 76 06/01/17 10:00 76 I/O 06/01/17 06/01/17 06/01/17 06/02/17 06/02/17 06/02/17 07:00 15:00 23:00 07:00 15:00 23:00 Intake Total 240 ml 875 ml 240 ml Output Total 500 ml 650 ml 700 ml Balance -260 ml 225 ml -460 ml Intake Oral 240 ml 875 ml 240 ml Output Urine Total 500 ml 650 ml 700 ml # Bowel Movements 0 0 0 Result Diagram: 05/31/1722805/31/17228 Objective Remarks Unlabored breathing, no cyanosis, clear lungs bilaterally Heart sounds are regular rate and rhythm, no murmurs right sided Scalp hematoma is stable, dried blood over area of stitches A/P Assessment and Plan 81-year-old female who sustained a head injury status post fall found to have elevated troponin. 1. Suspected NSTEMI - troponins drastically increased yesterday with the most recent one leveling off EKG with right bundle branch block and no ST elevation or depression, reviewed by me Cardiology following, planning for catheterization in AM lipitor 40 mg qhs, continue Toprol XL 2. Closed head injury CT head negative for intracranial cranial bleed Scalp hematoma, stitches in place, to be removed in 6-9 days (outpatient) - ideally the pt should be w/o blood thinner, her heart condition trumps this warranting thinners for the time being 3. postprandial Nausea - possibly GERD based - resolved, continue daily Protonix 3. DM SSI - modify diet to be compliant with carb restriction - sugars doing well less than 200 here. A1c is 6.7% which is just beyond diet control, will d/w with pt cj need for likely starting metformin outpt 4. CAD/anxiety/neuropathy Continue home medications - continue toprol xl, gabapentin Heparin Obie Curiel MD Jun 02, 2017 09:14
[2017-06-02] MEDS: INSULIN ASPART SUPPLEMENTAL SCALE SQ SCH ×4 (09:26→20:05)
[2017-06-02] MEDS: METOPROLOL SUCCINATE 25 MG EXTENDED RELEASE TAB PO SCH (09:27)
[2017-06-02] MEDS: CLOPIDOGREL 75 MG TAB PO SCH (09:27)
[2017-06-02] MEDS: SODIUM CHLORIDE 0.9% FLUSH 10 ML FLUSH IV FLUSH SCH ×3 (09:27→19:49)
[2017-06-02] MEDS: PANTOPRAZOLE SOD 40 MG DELAYED RELEASE TAB PO SCH (09:27)
[2017-06-02] MEDS: RAMIPRIL 5 MG CAP PO SCH (09:27)
[2017-06-02] MEDS: GABAPENTIN 300 MG CAP PO SCH (09:27)
[2017-06-02 09:52] LABS: BICARBONATE 26.6 MEQ/L (21.0-32.0); POTASSIUM 3.3 MEQ/L (3.5-5.1)
[2017-06-02] MEDS ORDERED: MAGNESIUM SULFATE 1 GM PREMIX 100 ML IV ONE (13:30)
--- NOTE | 2017-06-02 13:51 | HHI.PR ---
Subjective Remarks pt denies chest pain. Objective Vital Signs Date Time Temp Pulse Resp B/P (MAP) Pulse Ox O2 Delivery O2 Flow Rate FiO2 06/02/17 13:30 88 06/02/17 13:00 82 06/02/17 12:00 82 06/02/17 11:30 98.0 95 20 103/58 (73) 100 06/02/17 11:00 88 06/02/17 10:00 96 06/02/17 09:00 90 06/02/17 08:00 Room Air 06/02/17 08:00 84 06/02/17 07:30 98.1 97 18 139/71 (93) 98 06/02/17 07:00 82 06/02/17 06:00 87 06/02/17 05:00 90 06/02/17 04:00 Room Air 06/02/17 04:00 93 06/02/17 04:00 98.0 93 18 146/71 (96) 97 06/02/17 03:00 99 06/02/17 02:00 81 06/02/17 01:00 80 06/02/17 00:00 98.4 73 18 151/71 (97) 99 06/02/17 00:00 Room Air 06/02/17 00:00 73 06/01/17 23:00 77 06/01/17 22:00 72 06/01/17 21:00 74 06/01/17 20:00 Room Air 06/01/17 20:00 98.1 80 18 148/72 (97) 97 06/01/17 20:00 80 06/01/17 18:00 74 06/01/17 17:00 76 06/01/17 16:00 74 06/01/17 16:00 98.2 76 18 126/67 (86) 96 06/01/17 15:00 79 06/01/17 14:00 74 I/O 06/01/17 06/01/17 06/01/17 06/02/17 06/02/17 06/02/17 07:00 15:00 23:00 07:00 15:00 23:00 Intake Total 240 ml 875 ml 240 ml Output Total 500 ml 650 ml 700 ml Balance -260 ml 225 ml -460 ml Intake Oral 240 ml 875 ml 240 ml Output Urine Total 500 ml 650 ml 700 ml # Bowel Movements 0 0 0 VSS CHEST: CTA HEART: S1,S2,RRR ABD: ST, NT EXT: No edema Result Diagram: 05/31/17 0229 06/02/17 0908 Assessment and Plan Assessment and Plan pt had new changes on her EKG. It showed extensive STEMI in the anterior leads , risks and benefits of LT HC. Risks are but not limited to:' , [place], CVA, Dye allergy, renal failure and bleed" she is agreeable. Federico Grace MD Jun 02, 2017 13:51
--- NOTE | 2017-06-02 13:58 | HHI.PR ---
Addendum to Inpatient Note Addendum Reason: Additional Documentation Additional Information Nursing paged with concerning new changes on telemetry. EKG was obtained which shows prominent ST segment elevation which is new in V2. Pt denied any chest pain nor nausea nor SOB. Initially I did contact Dr. Locke and left voice mail. I also contacted his partner Dr. Vera and the discuss the case with him as well - Dr. Grace returned call simultaneously. He came directly and saw the patient promptly - agrees with STEMI impression, took patient to [facility]. At the same time RN pointed out that her magnesium was low at 1.4, IV magnesium was ordered as well as replenishment. Post catheterization Dr. Sheridan did relay to me that she did have acute LAD disease that was not amenable to stenting. Aggregate critical care time was 35 minutes spent at bedside or in the hospital [facility]. Time to perform other separately billable procedures was not included in the critical care time. My time did not include minutes spent treating any other patient simultaneously or on activities that did not directly To be due to the patient's treatment. The services are provided to this patient were to treat and/or prevent clinically significant deterioration that could result in organ failure, , disability, or imminent clinical deterioration in the patient's condition. I provided critical care services requiring my management as noted above. Obie Curiel MD Jun 02, 2017 13:58
[2017-06-02] MEDS: SODIUM CHLOR 0.9% 1000 ML INJ 1,000 ML IV SCH (14:14)
[2017-06-02] MEDS ORDERED: HEPARIN-NS/PF INJ 1,000 ML ONE (14:24)
[2017-06-02] MEDS ORDERED: diphenhydrAMINE HCL 50 MG/ML VIAL ONE (14:55)
[2017-06-02] MEDS ORDERED: MIDAZOLAM HCL 2 MG/2 ML VIAL ONE (14:56)
[2017-06-02] MEDS ORDERED: HEPARIN SODIUM - IV 10,000 UNITS/10 ML VIAL ONE (15:12)
[2017-06-02] MEDS ORDERED: ATROPINE SULFATE 1 MG/ML VIAL IV PUSH PRN (15:30)
[2017-06-02] MEDS ORDERED: LORazepam 2 MG/ML VIAL IV PUSH PRN (15:30)
[2017-06-02] MEDS ORDERED: MISC INFORMATION XX ONE (15:30)
[2017-06-02] MEDS ORDERED: SODIUM CHLORIDE 0.9% FLUSH 10 ML FLUSH IV FLUSH PRN (15:30)
[2017-06-02] MEDS ORDERED: LIDOCAINE HCL 1% 50 ML VIAL INFIL PRN (15:30)
--- NOTE | 2017-06-02 16:03 | CATHPROC ---
[employer] HIS Report Study Information Study Number Admission Scheduled Start Study Start [id number] May 31 2017 1:23AM 06/02/2017 Jun 02 2017 2:51PM [place] [facility] Cardiac Catheterization Admit Source Facility Department Emergency department [facility] - [employer] Operator Physician and Clinical Staff Initial Federico Naranjo Television Producer Ruth Morales,MICA Additional Cheng Olvera Television Producer Herman NINO, Scooter RecordNikki Dexter,RT(R) Scrub Wayne Langford,RT(R) Procedures Performed Procedure Location (Site) Vessel Name Coronary Angiograms LCA Left Coronary Coronary Angiograms ALBERTO Graft Left Coronary Coronary Angiograms SVG-OM 1 CIRC Coronary Angiograms SVG-OM 2 CIRC Coronary Angiograms SVG-RCA Right Coronary L Heart Cath PTCA ALBERTO Dist ALBERTO Wire insertion Fem Art (right) Femoral Art Equipment Time Manager Wastewater Description Size Mfg Part Number Used/Scraped TRANSDUCER, TRUWAVE [id number] 14:57 SURESH SAUNDERS * Used W/STOCKCOCK *[id number] 15:22 BOSTON SCIENTIFIC BALLOON, 2.0 12MM EMERGE MR 2.0 12MM Used *[id number] 15:09 [employer] WIRE, CHOICE PT 182CM 182CM Used *[id number] 15:26 CARDIiGo MEDICAL VASCADE, FR6 CLOSURE SYSTEM FR 6\7 Used *[id number] *[id number] *[id number] *[id number] [phone] *[id number] [phone] *[id number] 14:57 MEDLINE INDUSTRIES PACK, CCL CUSTOM * Used *[id number] 14:57 MEDLINE PACER PEN, SKIN DUAL W/ RULER * Used *[id number] 15:17 MEDTRONIC BALLOON, 1.5 X 20MM EUPHORA 20MM Used *[id number] 15:13 MEDTRONIC BALLOON, 2.0 X 15MM EUPHORA 15MM Used *[id number] 15:15 Bra[employer]uticals 30 NIKKI INDEFLATOR Used *[id number] 14:57 Doctor kinetic MEDICAL SHEATH, FR6.5 PRELUDE 11CM FR 6.5 038ACT Used *[id number] 14:57 [employer]icals WIRE, 3MMJ .035 180CM 180CM Used *[id number] 14:57 NAMIC MANIFOLD, 4 PORT * Used *[id number] 14:57 NYCOMED OMNIPAQUE, 350 MG, 150ML 150ML [id number] Used [id number] 14:57 [employer]K MEDICAL BLANKET,WARM AIR CCL * Used *[id number] Equipment Model, Serial, Lot Number and Expiration Data Description Model Number Serial Number Lot Number Expiration Date BALLOON, 1.5 X 20MM EUPHORA [id number] 02-05-2019 BALLOON, 2.0 X 15MM EUPHORA [id number] 11-13-2018 BALLOON, 2.0 12MM EMERGE MR [id number] 10-16-2019 WIRE, CHOICE PT 182CM [id number] 03-07-2019 History: Current Medications Medication Dosage/Unit Route Frequency Last Date/Time Taken PLAVIX Glucophage LOPRESSOR Neurontin History: Allergies Allergy Reaction Penicillins History: Risk Factors Prior Valve Prior PCI Prior CABG Prior CABGDate Surgery No Yes Yes 07/08/2001 Cerebrovascular Peripheral Artery On Dialysis Diabetes Diabetes Therapy Disease Disease No No No Yes Oral History: Stress Tests Stress or Imaging Studies Performed No History: Other Disease Selection Items CAD History: Other Current Smoker Method Packs a Day Years Used Pack Years Yes Cigarettes 1 40 40 Labs Hgb (g/dl) Hct (%) WBC (l/cumm) Platelets (thousands) 11.60-17.00 35.00-51.00 4.00-11.00 150.00-450.00 13.6 40.1 11 231 Glucose (mg/dl) BUN (mg/dl) Creatinine (mg/dl) BUN:Creatinine (1:x) 74.00-106.00 7.00-18.00 0.50-1.30 10.00-20.00 169 9 0.5 18 Na (meq/l) K (meq/l) 136.00-145.00 3.50-5.10 134 3.3 INR (PTT:PT) 0.90-1.10 1 Troponin I (ng/ml) CPK (u/l) CPK-MB (ng/ML) 0.02-0.05 26.00-308.00 0.50-3.60 6.74 181 Not Drawn Medication Medication Total Dose (Bolus/Oral) Medication Total Dosage/Unit 1% XYLOCAINE 20 mL BENADRYL 50 mg HEPARIN 3900 units NTG (IC) 100 mcg VERSED 1 mg Medications (Bolus/Oral) Medication Time Given Dosage/Unit Administered By Reason 1% XYLOCAINE 06/02/2017 2:56:00 PM 20 mL YuriysinAbbymad 20 mL 1% XYLOCAINE given in lab by Federico Grace in Right Groin via Subcutaneous. BENADRYL 06/02/2017 2:57:00 PM 50 mg Scooter Sutton RN 50 mg BENADRYL given in lab by Scooter Sutton RN in Left Antecubital via Peripheral IV. VERSED 06/02/2017 2:58:00 PM 1 mg Scooter Sutton RN 1 mg VERSED given in lab by Scooter Sutton RN in Left Antecubital via Peripheral IV. Ordered by Federico Grace. HEPARIN 06/02/2017 3:12:48 PM 3400 units Ruth Morales 3400 units HEPARIN given in lab by Ruth Morales RN in Left Antecubital via Peripheral IV. Ordered by Cheng Vera. HEPARIN 06/02/2017 3:23:24 PM 500 units Scooter Sutton RN 500 units HEPARIN given in lab by Scooter Sutton RN in Left Antecubital via Peripheral IV. Ordered by Cheng Alcantara. NTG (IC) 06/02/2017 3:23:45 PM 100 mcg Cheng Vera 100 mcg NTG (IC) given in lab by Cheng Vera in Right Groin via Intra-coronary. Medication (Drip) Medication Time Given Dosage/Unit Concentration/Unit Diluent (ml) Solutio n IV Solutions 06/02/2017 2:52:19 PM 50 mL (IV) NaCl .9 IV Solutions given in lab by Scooter Sutton RN in Left Antecubital via Peripheral IV. Pump/Drip Flow us ing NaCl .9. Initial Case Assessment Cardiovascular HR Rhythm NIBP Chest Pain 84 SR w/ ST elevation 113/58 0 Edema Present Skin color Skin Mild Normal Warm Dry Circulatory - Right Pulses Dorsalis Pedis Femoral 2 3 Scale (0,1,2,3,4,d) Circulatory - Left Pulses Dorsalis Pedis Femoral 2 3 Scale (0,1,2,3,4,d) Neurological State Oriented to time-place- Alert Moves all extremities person Respiration - General Respiration Rate SpO2 (%) O2 (lpm) (B/min) 20 97 2 Chronological Log Time Study Chronological Log 14:45:00 Patient arrived via Bed. 14:51:00 Patient Name, D.O.B, / Armband Verified By R.N. 14:51:02 Consent signed by the physician and the patient and verified by the [employer] Operator staff. 14:51:04 Pre-op and post- op instructions given; patient acknowledges understanding of instructions. 14:51:05 Verbal Stimulation=2 Physical Stimulation=2 Airway=2 Respiration=2 TOTAL=8. (0=absent, 1=li mited, 2=present) 14:51:09 Patient has been NPO for More than 6Hrs. 14:51:15 Patient Warmer Placed on the Table. 14:51:17 Bety Prominences Protected 14:52:07 A # 20 IV was noted in the Antecubital (left). Grade = 0 14:52:19 IV Solutions given in lab by Scooter Sutton RN in Left Antecubital via Peripheral IV. Pump/Dr ip Flow using NaCl .9. 14:52:34 History and physical on the chart or being dictated. Assessment: Initial Case, HR=84 BPM, Rhythm=SR w/ ST elevation, KCUP=610/58 mmhg, Chest Pain=0, Edema=Mild, Color=Normal, Skin = Warm, Dry Right Pulses: Orville Ped=2, Femoral=3 14:52:35 Left Pulses: Orville Ped=2, Femoral=3 Neurological: State=Alert, Ox3, PEARCE Respiration: Resp=20 B/min, SpO2=97 %, O2=2 lpm 14:53:01 Bilateral groins prepped with 2% chlorhexidine, and draped after a 3 minute waiting time. Time Out. Correct patient, correct procedure, correct physician, power injector loaded, or not loaded with contrast with 14:53:48 surgical team present. Time Out Concurred by MD and individual staff in procedure. Vitals capture started with the following parameters, Patient=Adult, Interval=5 min, Initial Pr seefbe=374 mmHg, 14:54:21 Deflation Rate=5 mmHg, Cuff placed on Left Arm 14:54:32 Reference ECG taken 14:54:33 Case Start 14:54:57 HR=80 bpm, OJVR=079/58 mmhg, SpO2=97.0 %, Resp=20 B/min 14:55:09 Pressure channel 1 zeroed. 14:56:00 20 mL 1% XYLOCAINE given in lab by Federico Grace in Right Groin via Subcutaneous. 14:56:12 Access site was Right Femoral Artery. 14:56:23 A SHEATH, FR6.5 PRELUDE 11CM FR 6.5 was advanced into the Fem Art (right) using the Percuta neous technique. 14:57:00 50 mg BENADRYL given in lab by Scooter Sutton RN in Left Antecubital via Peripheral IV. A JL 4.0 GUIDE CATHETER FR 6 was advanced over a wire. OMNIPAQUE, 350 MG, 150ML 150ML was used for 14:57:43 injections. 14:57:55 The LCA was injected and visualized at various angles. OMNIPAQUE, 350 MG, 150ML 150ML used . 14:58:00 1 mg VERSED given in lab by Scooter Sutton RN in Left Antecubital via Peripheral IV. Ordered by Federico Grace. After removing the current catheter a JR 4.0 GUIDE CATHETER FR 6 was advanced over a WIRE, 3MMJ .035 180CM 14:58:35 180CM. 14:59:52 HR=84 bpm, PJCB=227/72 mmhg, SpO2=98.0 %, Resp=21 B/min 15:00:00 The SVG-OM 1 was injected and visualized at various angles. OMNIPAQUE, 350 MG, 150ML 150ML used. Recorded Pressure: Ao, HR=83, Condition=Condition 1 15:00:23 (Aorta) Ao 133/61/91 15:01:10 The SVG-OM 2 was injected and visualized at various angles. OMNIPAQUE, 350 MG, 150ML 150ML used. 15:04:55 HR=86 bpm, NHQY=996/72 mmhg, SpO2=98.0 %, Resp=16 B/min 15:05:32 The ALBERTO Graft was injected and visualized at various angles. OMNIPAQUE, 350 MG, 150ML 150M L used. After removing the current catheter a AR MOD INFINITI CATHETER FR 6 was advanced over a WIRE, 3 MMJ .035 180CM 15:05:59 180CM. 15:07:35 The SVG-RCA was injected and visualized at various angles. OMNIPAQUE, 350 MG, 150ML 150ML u sed. 15:08:00 Catheter was removed 15:09:22 Procedure turned into intervention, Dr. Vera replaced Dr. Grace 15:09:56 HR=86 bpm, FURW=892/70 mmhg, SpO2=98.0 %, Resp=25 B/min 15:10:54 A JOSÉ GUIDE CATHETER FR 6 was advanced over a wire. OMNIPAQUE, 350 MG, 150ML 150ML was used for injections. 15:11:30 A WIRE, CHOICE PT 182CM 182CM was inserted via Fem Art (right). 15:12:00 Interventional wire has crossed the lesion 15:12:48 3400 units HEPARIN given in lab by Ruth Morales RN in Left Antecubital via Peripheral IV . Ordered by Cheng Vera. 15:14:40 A BALLOON, 2.0 X 15MM EUPHORA 15MM was inserted over WIRE, CHOICE PT 182CM 182CM via the Fe m Art (right). A BALLOON, 2.0 X 15MM EUPHORA 15MM over a WIRE, CHOICE PT 182CM 182CM in the ALBERTO Dist was infl ated using 15:14:50 a 30 NIKKI INDEFLATOR at 9 nikki for 30 sec. 15:14:59 HR=88 bpm, THWA=099/62 mmhg, SpO2=98.0 %, Resp=19 B/min A BALLOON, 2.0 X 15MM EUPHORA 15MM over a WIRE, CHOICE PT 182CM 182CM in the ALBERTO Dist was infl ated using 15:16:15 a 30 NIKKI INDEFLATOR at 8 nikki for 20 sec. 15:17:03 Balloon Removed. 15:17:54 Activated Clotting Time Drawn 15:18:10 A BALLOON, 1.5 X 20MM EUPHORA 20MM was inserted over WIRE, CHOICE PT 182CM 182CM via the Fe m Art (right). A BALLOON, 1.5 X 20MM EUPHORA 20MM over a WIRE, CHOICE PT 182CM 182CM in the ALBERTO Dist was infl ated using 15:19:23 a 30 NIKKI INDEFLATOR at 12 nikki for 30 sec. 15:20:33 HR=92 bpm, WZSZ=176/75 mmhg, SpO2=99.0 %, Resp=14 B/min 15:21:12 Balloon Removed. 15:22:04 ACT (Normal Range 90-180) = 229 A BALLOON, 2.0 12MM EMERGE MR 2.0 12MM was inserted over WIRE, CHOICE PT 182CM 182CM via the F em Art 15:22:37 (right). 15:23:24 500 units HEPARIN given in lab by Scooter Sutton RN in Left Antecubital via Peripheral IV. O rdered by Cheng Vera. 15:23:45 100 mcg NTG (IC) given in lab by Cheng Vera in Right Groin via Intra-coronary. 15:23:55 Balloon Removed. 15:23:56 Wire removed 15:24:00 Catheter was removed 15:24:59 HR=95 bpm, PDLE=369/80 mmhg, SpO2=99.0 %, Resp=16 B/min 15:25:38 An injection in the Fem Art (right) was made through the SHEATH, FR6.5 PRELUDE 11CM FR 6.5 . 15:26:00 VASCADE, FR6 CLOSURE SYSTEM FR 6\7 placement in the Fem Art (right) 15:27:30 Case End 15:29:54 HR=93 bpm, LSPP=132/87 mmhg, SpO2=98.0 %, Resp=14 B/min 15:30:27 Sterile dressing applied to site 15:30:28 No case complications noted. 15:30:32 Bedside Report will be given. 15:32:42 A Left Heart Cath was performed. 15:34:59 HR=94 bpm, KPTF=206/80 mmhg, SpO2=98.0 %, Resp=10 B/min 15:40:02 HR=96 bpm, MAJK=927/77 mmhg, SpO2=99.0 %, Resp=16 B/min 15:45:01 HR=93 bpm, YJLU=743/80 mmhg, SpO2=98 %, Resp=16 B/min 15:50:02 HR=92 bpm, ZYMI=693/75 mmhg, SpO2=98.0 %, Resp=20 B/min 15:54:59 HR=93 bpm, UWAS=141/81 mmhg, SpO2=98.0 %, Resp=23 B/min 16:01:42 Pressure held on right groin for two 15 minute intervals to achieve hemostasis. End Study - Contrast Media Used In Study Contrast Total Opened (mL) Total Used (mL) Total Wasted (mL) Omnipaque 100 100 0 End Study - Maximum Contrast Load Max Contrast Load (mL) 572.7 End Study - Radiation Exposure Fluoro Time (minutes) 10.5 End Study - Patient Disposition Complications Transferred To Telemetry Bed
[2017-06-02] MEDS: ATORVASTATIN 40 MG TAB PO SCH (19:48)
--- NOTE | 2017-06-02 20:31 | MR ---
cc: VANESSA ALFARO M.D. DATE: 06/02/2017. PROCEDURE PERFORMED: Angioplasty of the anterior descending coronary artery. INDICATIONS FOR THE PROCEDURE: The patient is an 81-year-old with history of coronary artery disease, bypass surgery with EKG inadvertently done with S-T changes. Heart catheterization was performed by Dr. Grace with occluded left anterior descending after connecting the ALBERTO. The ALBERTO itself is with no significant disease. DESCRIPTION OF THE PROCEDURE IN DETAIL: The patient already had a sheath in the right groin, a 6-Moroccan so a ALBERTO catheter 6-Moroccan guide was used to intubate the ALBERTO. Heparin was given, and a Whisper wire was used to cross the lesion and positioned distally. A 2.0 balloon was used. We got some flow. Severe diffuse disease. Could not really pass the balloon in the proximal portion and multiple tries applied with even a 1.5 balloon was unsuccessful with faint flow consistent with severe diffuse disease and old occlusion and the vessel itself is extremely small. The patient was hemodynamically stable. No chest pain. The right femoral artery trial was stopped at this point. Right femoral angiogram was performed and closure of the puncture wound was done. The patient was sent back to the room in stable condition. POSTOPERATIVE DIAGNOSIS: Angioplasty of completely occluded left anterior descending with severe diffuse disease visualized. MD NEHA Braswell/JENNIFER /3:36 PM /8:29 PM
--- NOTE | 2017-06-02 20:53 | M6 ---
cc: FEDERICO ORTEGA M.D. DATE: 06/02/2017. INDICATIONS FOR THE PROCEDURE / BRIEF HISTORY: This is an 81-year-old female with a past medical history of bypass surgery. She presented to [facility] with vex-DJ-uquyozllo myocardial infarction this afternoon. The nurse noted changes on her telemetry. A 12-lead EKG was obtained and showed anterior S-T elevation myocardial function. The patient was taken for left heart catheterization. PROCEDURAL NOTE: After all risks and benefits were explained, and informed consent was obtained, the patient was brought to the catheterization lab in a fasting state. The right groin was sterilized and prepped in the usual manner. 1% Xylocaine was used to anesthetize the right groin triangle. According to the modified Seldinger approach, a 5 English sheath was placed in the right femoral artery without any difficulty. A left heart catheterization was then carried out using size 4 left and right Samuel catheters. A pigtail catheter was used to access the left ventricle to perform left ventriculography. After multiple fluoroscopic views were obtained, all catheters were pulled. There was no apparent complication. CONCLUSIONS: 1. Left main: The left main is a moderate sized vessel which originates from the left . It is heavily calcified. It gives off left anterior descending artery and left circumflex artery. The left main has 40% to 50% stenosis throughout. 2. Left anterior descending artery: This is a moderate-sized vessel which is totally occluded proximally. 3. Left circumflex artery: This is a moderate-sized vessel, which is occluded in the middle segment. 4. Right coronary artery: The right coronary artery is totally occluded proximally. 5. ALBERTO to the left anterior descending artery: This was a patent graft that inserts into the proximal segment of the left anterior descending artery distal to the anastomosis site. The left anterior descending artery is totally occluded. It looks like there is a thrombus causing the occlusion. 6. Saphenous vein graft to the obtuse marginal artery: This is a widely patent graft. IT inserts into the proximal segment of the first obtuse marginal artery distal to the anastomosis site and obtuse marginal artery has minimal disease. This is a jump graft, which gives off another branch to the diagonal artery. The diagonal artery is free of atherosclerosis. 7. Saphenous vein graft to the second obtuse marginal artery: This is widely patent to the graft. The second obtuse marginal artery is a small-sized artery and free of atherosclerosis. 8. Saphenous vein graft to the right coronary artery: This is a widely patent graft that inserts into the proximal segment of the posterior descending artery distal to the anastomosis site. The artery is a moderate to small sized vessel. There is significant disease involving the distal portion. CONCLUSIONS: The patient has acute occlusion of the left anterior descending artery. A percutaneous coronary intervention and stenting will be attempted. Federico Ortega MD /JENNIFER /3:20 PM /8:45 PM
--- NOTE | 2017-06-02 21:09 | EKG ---
Date Performed: 06/02/2017 Time Performed: 13:12:38 PTAGE: 81 years EKG: CONSIDER ACUTE ST ELEVATION AR Sinus rhythm with borderline 1st degree A-V block Left axis deviation Nonspecific intraventricular conduction del ay Anterior and lateral ST elevation, CONSIDER ACUTE INFARCT Abnormal ECG PREVIOUS TRACING : 05/30/2017 23.03 Compared to previous tracing, heart rate has increased. DOCTOR: Danyel Bentley Interpretating Date/Time 06/02/2017 21:09:03
[2017-06-03] VITALS (18 sets, daily range): BP systolic 99–135; BP diastolic 54–69; PULSE 74–103; RESP 16–18; TEMP 97.8–98.3; O2SAT 97–98
[2017-06-03] MEDS: INSULIN ASPART SUPPLEMENTAL SCALE SQ SCH ×2 (08:00→11:29)
[2017-06-03] MEDS: CLOPIDOGREL 75 MG TAB PO SCH (08:06)
[2017-06-03] MEDS: METOPROLOL SUCCINATE 25 MG EXTENDED RELEASE TAB PO SCH (08:07)
[2017-06-03] MEDS: RAMIPRIL 5 MG CAP PO SCH (08:07)
[2017-06-03] MEDS: PANTOPRAZOLE SOD 40 MG DELAYED RELEASE TAB PO SCH (08:07)
[2017-06-03] MEDS: ACETAMINOPHEN 325 MG TAB PO PRN (08:07)
[2017-06-03] MEDS: GABAPENTIN 300 MG CAP PO SCH (08:07)
[2017-06-03] MEDS: SODIUM CHLORIDE 0.9% FLUSH 10 ML FLUSH IV FLUSH SCH ×2 (08:08→08:10)
[2017-06-03 11:22] LABS: BICARBONATE 26.5 MEQ/L (21.0-32.0); MAGNESIUM 1.6 MG/DL (1.5-2.5)
[2017-06-03] MEDS ORDERED: POTASSIUM CHLOR 20 MEQ PREMIX 100 ML IV ONE (12:00)
[2017-06-03] MEDS ORDERED: MAGNESIUM SULFATE 1 GM PREMIX 100 ML IV ONE (12:00)
[2017-06-03] MEDS ORDERED: POTASSIUM CHLORIDE 10 MEQ CONTROLLED RELEASE TAB PO ONE ×2 (12:00→15:45)
[2017-06-03] MEDS ORDERED: ATOR40TA16 PO (14:08)
--- NOTE | 2017-06-03 14:09 | HHI.DCPOC ---
Discharge Care Plan Diagnosis: (1) STEMI (ST elevation myocardial infarction) (2) Traumatic hematoma of scalp (3) Closed head injury Additional Problems HAVE YOUR PRIMARY CARE PROVIDER CHECK YOUR ELECTROLYTES AND MAGNESIUM levels within 1 week Goals to Promote Your Health * To prevent worsening of your condition and complications * To maintain your health at the optimal level Directions to Meet Your Goals Take your medications as prescribed Follow your dietary instruction Follow activity as directed Keep your appointments as scheduled Take your immunizations and boosters as scheduled If your symptoms worsen call your PCP, if no PCP go to Urgent Care Center or Emergency Room Smoking is Dangerous to Your Health. Avoid second hand smoke Call the 24-hour hour crisis hotline for domestic abuse at Obie Curiel MD Jun 03, 2017 14:09
--- NOTE | 2017-06-03 14:16 | HHI.DS ---
Discharge Summary Admission Date May 31, 2017 at 01:23 Discharge Date: Jun 03, 2017 Admitting Diagnosis closed head injury; elevated troponin I w/ CAD; cervical strain (1) STEMI (ST elevation myocardial infarction) ICD Code: I21.3 - ST elevation (STEMI) myocardial infarction of unspecified site (2) Closed head injury ICD Code: S09.90XA - Unspecified injury of head, initial encounter Status: Acute (3) Elevated troponin I level ICD Code: R74.8 - Abnormal levels of other serum enzymes Status: Acute (4) Traumatic hematoma of scalp ICD Code: S00.03XA - Contusion of scalp, initial encounter Status: Acute Procedures left heart cath 06/02/17 Brief History - From Admission 81-year-old female with a past medical history significant for coronary artery disease status post CABG, duodenal ulcer, diabetes mellitus, anxiety and neuropathy presents to the emergency department status post a fall. The patient was at her home when she stepped backwards off an uneven surface and fell backwards hitting the back of her head. The patient sustained a large laceration to the back of her head. She denies loss of consciousness. Since her fall, she has had several episodes of nausea/vomiting. She is anticoagulated on aspirin and Plavix. CT of the head was significant for right parietal scalp hematoma without intracranial abnormalities. CT of the cervical spine is within normal limits. The patient denies any chest pain or shortness of breath. She continues to have nausea and states she "just doesn't feel well. " Laboratory values significant for troponin of 0.17. EKG showed sinus rhythm and right bundle branch block without ST segment elevations or depressions. CBC/BMP: 05/31/17 0229 06/03/17 1041 Significant Findings Laboratory Tests Test 05/31/17 18:15 06/01/17 10:25 06/01/17 17:51 06/02/17 09:08 Troponin I 6.74 NG/ML (0.02-0.05) Hemoglobin A1c 6.7 % (4.3-6.0) Urine Glucose (UA) 300 mg/dL (NEG) Urine Ketones TRACE mg/dL (NEG) Urine Occult Blood SMALL (NEG) Urine Leukocyte Esterase SMALL (NEG) Urine Mucus FEW /lpf (OCC) Random Glucose 169 MG/DL (74-106) Sodium Level 134 MEQ/L (136-145) Potassium Level 3.3 MEQ/L (3.5-5.1) Magnesium Level 1.4 MG/DL (1.5-2.5) Test 06/03/17 10:41 Random Glucose 323 MG/DL (74-106) Calcium Level 8.2 MG/DL (8.5-10.1) Sodium Level 135 MEQ/L (136-145) Potassium Level 3.0 MEQ/L (3.5-5.1) Estimat Glomerular Filtration Rate 79 ML/MIN (>89) PE at Discharge heart: rrr, no murmurs, NAD Hospital Course Patient was admitted after having her laceration secondary to her contusion hematoma sutured. She was about to be discharged but then was noted to have a significantly elevated troponin of greater than 7 at which point she was kept as an inpatient for further cardiac workup of a suspected NSTEMI. The patient was originally scheduled for a cardiac catheter on Saturday on 06/03 however her telemetry leads changed on 06/02 and a repeat EKG showed a STEMI in lead V2 yet she was asymptomatic. She underwent emergent catheterization with angioplasty which was not amenable to stenting in the LAD. Patient recovered from the procedure nicely and remained asymptomatic. Her laceration/hematoma appeared stable with the sutures in place. Patient was counseled on the importance of taking her medications and was instructed to follow-up with the primary care provider outpatient and 6-10 days to have her sutures evaluated and removed at the discretion of her primary care provider given that she is on blood thinners. Per cardiology, she is okay to just go home on Plavix as opposed to dual antiplatelet therapy given that she has hematoma. Patient has met maximal benefit from hospitalization and is clinically stable for discharge. Pt Condition on Discharge: Stable Discharge Disposition: Discharge Home Discharge Time: <= 30 minutes Discharge Instructions DIET: Follow Instructions for: Heart Healthy Diet Activities you can perform: Weight Bearing as Surinder Follow up Referrals: Cardiology - 10 Days PCP Follow-up - 1 Week New Medications: Atorvastatin (Atorvastatin) 40 Mg Tab 40 MG PO HS for heart health, #30 TAB Continued Medications: Cholecalciferol (Vitamin D3) 1,000 Unit Cap 1000 UNITS PO DAILY for Nutritional Supplement, #1 BOTTLE 0 Refills Clopidogrel (Clopidogrel) 75 Mg Tab 75 MG PO DAILY for Blood Clot Prevention, #30 TAB 0 Refills Gabapentin (Gabapentin) 300 Mg Cap 300 MG PO DAILY, #60 CAP 0 Refills Lorazepam (Lorazepam) 1 Mg Tab 1 MG PO TID PRN for ANXIETY, TAB 0 Refills Metformin HCl (Metformin HCl ER) 1,000 Mg [id number] 1 TAB PO BID for Blood Sugar Management Metoprolol Succinate ER 24 HR (Metoprolol Succinate ER 24 HR) 25 Mg Tab 25 MG PO DAILY for Blood Pressure Management, #30 TAB 0 Refills Multivit-Min/FA/Lycopen/Lutein (Complete Multi 50+ Tablet) 500 Mcg-300 Mcg-250 Mcg Tablet 1 TAB PO DAILY Ramipril (Ramipril) 5 Mg Cap 5 MG PO DAILY for Blood Pressure Management, #30 CAP 0 Refills Discontinued Medications: Cephalexin (Cephalexin) 250 Mg Cap 250 MG PO QID for Infection for 14 Days, CAP 0 Refills Rosuvastatin (Rosuvastatin) 5 Mg Tab 5 MG PO HS for Cholesterol Management, #30 TAB 0 Refills Obie Curiel MD Jun 03, 2017 14:16
[2017-06-03] MEDS ORDERED: KLOR20TA3 PO (14:37)
[2017-06-03] MEDS ORDERED: MAGN500T2 PO (14:37)
[2017-06-03] MEDS ORDERED: IOHEXOL 350 MG/ML 100 ML BTL (for Cath Lab) OTHER ONE (15:34)
--- NOTE | 2017-06-03 20:02 | HHI.FF ---
Face to Face Verification Diagnosis: (1) Occipital scalp laceration (2) Traumatic hematoma of scalp (3) STEMI (ST elevation myocardial infarction) Home Health Nursing Order: Signs/symptoms of disease process Wound care and dressing changes I have seen patient Maci Echols on 06/03/17. My clinical findings support the need for the requested home health care services because: Limited ability to care for self I certify that my clinical findings support that this patient is homebound because: Poor cardiac reserve Obie Curiel MD Jun 03, 2017 20:02
== END 2017-06-03 17:08 | disposition home health service (06) | DRG 251 ==
LOC: NEPC 21:00 → NEDA 05-31 00:59 → INTOOBSV 05-31 00:59 → OBSVTOIN 05-31 01:23 → HCIS 05-31 02:15 → HCPC 05-31 21:51
PROVIDERS: ADMIT Family Medicine; ATTEND Hospitalist
PROC: 0HQ0XZZ Repair Scalp Skin, External Approach (ICD-10-PCS; 2017-05-31)
PROC: 02703ZZ Dilation of Coronary Artery, One Artery, Percutaneous Approach (ICD-10-PCS; principal; 2017-06-02)
PROC: 4A023N7 Measurement of Cardiac Sampling and Pressure, Left Heart, Percutaneous Approach (ICD-10-PCS; 2017-06-02)
PROC: B2111ZZ Fluoroscopy of Multiple Coronary Arteries using Low Osmolar Contrast (ICD-10-PCS; 2017-06-02)
PROC: B2181ZZ Fluoroscopy of Left Internal Mammary Bypass Graft using Low Osmolar Contrast (ICD-10-PCS; 2017-06-02)
PROC: B2131ZZ Fluoroscopy of Multiple Coronary Artery Bypass Grafts using Low Osmolar Contrast (ICD-10-PCS; 2017-06-02)
DX: I21.02 ST elevation (STEMI) myocardial infarction involving left anterior descending coronary artery (principal); E11.42 Type 2 diabetes mellitus with diabetic polyneuropathy; Z95.1 Presence of aortocoronary bypass graft; S01.01XA Laceration without foreign body of scalp, initial encounter; I10 Essential (primary) hypertension; S16.1XXA Strain of muscle, fascia and tendon at neck level, initial encounter; S00.03XA Contusion of scalp, initial encounter; E78.5 Hyperlipidemia, unspecified; I25.10 Atherosclerotic heart disease of native coronary artery without angina pectoris; F41.9 Anxiety disorder, unspecified; F17.210 Nicotine dependence, cigarettes, uncomplicated; R11.0 Nausea; M79.671 Pain in right foot; W01.0XXA Fall on same level from slipping, tripping and stumbling without subsequent striking against object, initial encounter; Y92.009 Unspecified place in unspecified non-institutional (private) residence as the place of occurrence of the external cause; Z88.0 Allergy status to penicillin; Z79.82 Long term (current) use of aspirin; Z79.02 Long term (current) use of antithrombotics/antiplatelets
CPT/HCPCS: 12001; 70450; 71010; 72125; 80048; 80053; 80307; 81001; 82435; 82550; 82565; 82947; 82948; 83036; 83735; 84132; 84295; 84484; 84520; 85002; 85025; 85610; 85730; 86850; 86900; 86901; 92941; 93005; 93454; 96374; C1725; C1760; C1769; C1887; C1893; G0269; J0690; J1200; J1644; J1815; J2250; J2270; J2405; J2765; J3475; J3480; J7030; Q9967